=== PATIENT | male | born 1960 | race Caucasian/White ===

== ENCOUNTER 2025-04-21 06:32 | Day surgery (SDC) | payer BC ==
[~2025-04-21] VITALS: Ht 175.3 cm; Wt 90.9 kg
[~2025-04-21 06:32] MED LIST: CIALIS20 MG PO; FLOMAX0.4 MG PO; LISINOPRIL20 MG PO; MELOXICAM15 MG PO; MIDAZOLAM HCL 5 MG/5 ML VIAL IV PRN; SIMVASTATIN10 MG PO; TESTOSTERO200 MG/1 M IM; VIAGRA100 MG PO; fentaNYL citrate 100 MCG/2 ML VIAL IV PRN
[2025-04-21 06:53] VITALS: BP 117/79
[2025-04-21] MEDS ORDERED: LIDOCAINE HCL 1% 5 ML SDV INJ ONE (07:00)
[2025-04-21] MEDS ORDERED: IBLOOD GLUCOSE TEST STRIP 1 EA TEST VI PRN (07:00)
[2025-04-21] MEDS ORDERED: LACTATED RINGER'S 1,000 ML IV SCH (07:00)
[2025-04-21] MEDS ORDERED: MIDAZOLAM HCL 5 MG/5 ML VIAL ONE (07:27)
[2025-04-21] MEDS ORDERED: fentaNYL citrate 100 MCG/2 ML VIAL ONE (07:28)
--- NOTE | 2025-04-21 08:08 | NUR ---
04/21/25 0808 Negro Cortez 0801: PT ARRIVED TO PACU VIA STRETCHER. PT ON RA. PT REPSONDING TP STIMULI AT THIS TIME. 0808: AT BEDSIDE.
[2025-04-21 08:30] VITALS: BP 115/79
--- NOTE | 2025-04-23 09:58 | OR ---
[facility] [address] [place], [place] [address] Signed DATE OF OPERATION: 04/21/2025 SURGEON: Giovanni Beckman MD PREOPERATIVE DIAGNOSIS: Family history of colon cancer (mother). POSTOPERATIVE DIAGNOSIS: Minimal sigmoid diverticulosis. PROCEDURE: Total colonoscopy to cecum. ANESTHESIA: Intravenous sedation, fentanyl 100 mcg, and Versed 4 mg. INDICATION: This 64-year-old white man is patient of Dr. Rita Lord. He last underwent colonoscopy 12 years ago in 2012. He was noted to have diverticula. He has family history of colon cancer in his mother who contracted the disease in her 60s. She did at age 71 from the disease recurrence. Currently, he has no symptoms of bleeding, diarrhea or constipation. He is admitted at this time to undergo colonoscopy. He understands the risk of bleeding, infection, and perforation. FINDINGS: The prep was adequate. Complete colonoscopy was undertaken of the cecum. He had a few scattered diverticula of the sigmoid, but no sign of polyps or colitis. DESCRIPTION OF PROCEDURE: The patient was brought to the endoscopy suite and placed in lateral decubitus position, given intravenous sedation to the point of slurred speech and nystagmus with full cardiopulmonary monitoring. Digital rectal examination was normal. An Olympus video colonoscope was passed in the rectum and manipulated throughout the colon ultimately intubating the cecal area itself. Visualization of the cecum was noted and the ileocecal valve was normal. The scope was withdrawn from that point and examination throughout showed no sign of abnormality other than a few diverticula of sigmoid colon. Retroflexed view was normal as well. The scope was removed. The Electronically Signed By: GIOVANNI BECKMAN MD 04/23/25 0958 PATIENT NAME: TERRI HERNÁNDEZ OPERATIVE REPORT DATE OF : 64 REPORT #: [id number] PHYSICIAN: GIOVANNI BECKMAN MD PCP: RITA LORD MD REPORT IS CONFIDENTIAL AND NOT TO BE RELEASED WITHOUT AUTHORIZATION [facility] [address] [place] [place] [address] Signed patient was taken to recovery room in good condition. CONCLUDING DIAGNOSIS: Diverticulosis. No evidence of polyps. PLAN: Recommend repeat colonoscopy in 5 years based on current recommendations, based on family history in his mother. In addition, recommend high-fiber diet. The patient will return to the ongoing care of Dr. Lord. MD SHI Gutierrez/KARENL /[id number] cc: Dr. Lord Copies: ~ Electronically Signed By: GIOVANNI BECKMAN MD 04/23/25 0958 PATIENT NAME: TERRI HERNÁNDEZ OPERATIVE REPORT DATE OF : 64 REPORT #: [id number] PHYSICIAN: GIOVANNI BECKMAN MD PCP: RITA LORD MD REPORT IS CONFIDENTIAL AND NOT TO BE RELEASED WITHOUT AUTHORIZATION
== END 2025-04-21 08:44 | disposition home or self-care (01) ==
LOC: DS 06:32
PROVIDERS: ATTEND Surgery
PROC: 0DJD8ZZ Inspection of Lower Intestinal Tract, Via Natural or Artificial Opening Endoscopic (ICD-10-PCS; principal; 2025-04-21 07:30)
DX: Z12.11 Encounter for screening for malignant neoplasm of colon (principal); K57.30 Diverticulosis of large intestine without perforation or abscess without bleeding; R97.20 Elevated prostate specific antigen [PSA]; I10 Essential (primary) hypertension; Z80.0 Family history of malignant neoplasm of digestive organs; Z79.899 Other long term (current) drug therapy; Z98.890 Other specified postprocedural states
CPT/HCPCS: 99153; G0500; J2250; J3010; J7121